=== PATIENT | male | born 2000 | race African-American/Black ===

== ENCOUNTER 2021-09-27 22:42 | Emergency (ER) | payer MEDICAID ==
[~2021-09-27] VITALS: Ht 185 cm; Wt 145.1 kg
[2021-09-27 22:50] VITALS: BP 112/84
--- NOTE | 2021-09-27 22:54 | ED Cough/URI ---
General Chief Complaint: COVID19 Suspect/Confirmed Stated Complaint: CHEST PAIN, COUGH, CONGESTION, NAUSEA, NUÑEZ Source: patient History of Present Illness Date Seen by Provider: Sep 27, 2021 Time Seen by Provider: 22:48 Initial Comments PT ARRIVES VIA POV FROM HOME SYMPTOMS BEGAN TODAY C/O COUGH C/O CHEST CONGESTION C/O HEADACHE C/O NAUSEA--NO VOMITING OR DIARRHEA C/O CHEST TIGHTNESS NO SHORTNESS OF BREATH NO FEVER NO BODY ACHES NO SORE THROAT NO LOSS OF TASTE /SMELL EATING AND DRINKING AND VOIDING NORMALLY HAS NOT TAKEN ANYTHING FOR SYMPTOMS PT HAS NOT HAD COVID-19 OR FLU VACCINES NO KNOWN SICK CONTACTS NO CHRONIC ILLNESSES NON SMOKER PCP: NONE--JUST MOVED HERE 1 MONTH AGO FROM [place]. Allergies and Home Medications Patient Home Medication List Home Medication List Reviewed: Yes Review of Systems Review of Systems Constitutional: no symptoms reported EENTM: nose congestion, throat pain Respiratory: see HPI, cough; No short of breath Cardiovascular: no symptoms reported Gastrointestinal: see HPI; No diarrhea; nausea; No vomiting Genitourinary: no symptoms reported Musculoskeletal: no symptoms reported Skin: no symptoms reported Psychiatric/Neurological: See HPI, Headache Hematologic/Lymphatic: No Symptoms Reported Immunological/Allergic: no symptoms reported Past Apnujdh-Satjyc-Xdqtnz Hx Patient Social History Tobacco Use?: No Smoking Status: Never a Smoker Smokeless Tobacco Frequency: Never a User Use of E-Cig and/or Vaping dev: No Use of E-Cig and/or Vaping Coy: Never a User Substance use?: No Alcohol Use?: No Past Medical History Surgeries: No Respiratory: No Cardiac: No Neurological: No Genitourinary: No Gastrointestinal: No Musculoskeletal: No Endocrine: No HEENT: No Cancer: No Psychosocial: No Integumentary: No Blood Disorders: No Physical Exam Vital Signs - First Documented 09/27/21 09/27/21 22:50 23:53 Temp 36.9 Pulse 98 Resp 20 B/P (MAP) 112/84 (93) Pulse Ox 98 Capillary Refill : Height: '" Weight: lbs. oz. kg; BMI Method: General Appearance: WD/WN, no apparent distress, obese, other (DOES NOT APPEAR ILL OR TO BE IN ANY DISCOMFORT OR DISTRESS. NO COUGH NOTED DURING EXAM) HEENT: PERRL/EOMI, normal ENT inspection, TMs normal, pharynx normal, other Neck: non-tender, full range of motion, supple, normal inspection Respiratory: chest non-tender, normal breath sounds, no respiratory distress, no accessory muscle use Cardiovascular: regular rate, rhythm, no murmur Gastrointestinal: non tender, soft Extremities: normal inspection Neurologic/Psychiatric: no motor/sensory deficits, alert, normal mood/affect, oriented x 3 Skin: normal color (PT IS BLACK), warm/dry Progress/Results/Core Measures Suspected Sepsis SIRS Temperature: Pulse: Respiratory Rate: Blood Pressure / Mean: Results/Orders Lab Results Laboratory Tests Test 09/27/21 23:00 09/27/21 23:05 09/27/21 23:15 Range/Units Influenza Type A Antigen NEGATIVE NEGATIVE Influenza Type B Antigen NEGATIVE NEGATIVE SARS-CoV-2 RNA (RT-PCR) Not Detected Negative My Orders Orders - CARMENCITA PILLAI DO Covid 19 Inhouse Test (09/27/21 22:48) Isolation Central Supply Req (09/27/21 22:48) Influenza A & B Antigens (09/27/21 23:05) Coronavirus Sars-Cov-2 So 2019 (09/27/21 23:00) Vital Signs/I&O 09/27/21 09/27/21 22:50 23:53 Temp 36.9 Pulse 98 Resp 20 B/P (MAP) 112/84 (93) Pulse Ox 98 Capillary Refill : Progress Note : Progress Note PLACED IN ISOLATION ROOM PPE WORN AT ALL TIMES COVID-19 AND FLU TESTING DONE NO COUGH NO DYSPNEA NO HYPOXIA NO FEVER DURING ER STAY Departure Impression Primary Impression: Person under investigation for COVID-19 Additional Impression: COVID LIKE ILLNESS Disposition: 01 HOME, SELF-CARE Condition: Stable Departure-Patient Inst. Decision time for Depature: 00:20 Patient Instructions: Preventing the Spread of an Infectious Disease, COVID-19 Tests Add. Discharge Instructions: TYLENOL AND MOTRIN NEEDED FOR PAIN OR FEVER OVER THE COUNTER MEDICATIONS NEEDED FOR COUGH AND CONGESTION LOTS OF CLEAR LIQUIDS QUARANTINE YOURSELF AND ALL HOUSEHOLD AND CLOSE CONTACTS FOR THE NEXT 5 DAYS, AND AFTER 5 DAYS, IF YOU ARE HAVING IMPROVED SYMPTOMS AND NO FEVER FOR OVER 24 HOURS WITHOUT MEDICATION, YOU MAY THEN WEAR A MASK AT ALL TIMES FOR AN ADDITIONAL 5 DAYS WHENEVER YOU LEAVE THE HOUSE YOU NEED TO BE RETESTED FOR COVID AND FLU IN 2-3 DAYS All discharge instructions reviewed with patient and/or family. Voiced understanding. Work/School Note: Work Release Form Date Seen in the Emergency Department: Sep 27, 2021 Return to Work: Oct 04, 2021 Restrictions: Return-No Fever (24hrs) CARMENCITA PILLAI DO Sep 27, 2021 22:53
== END 2021-09-28 00:54 | disposition home or self-care (01) ==
LOC: ER 22:45
DX: Z20.822 Contact with and (suspected) exposure to COVID-19 (principal); E66.9 Obesity, unspecified
CPT/HCPCS: 87635; 87636; 87804; 99285

== ENCOUNTER 2021-10-03 22:44 | Emergency (ER) | payer MEDICAID ==
[~2021-10-03] VITALS: Ht 183 cm; Wt 145.0 kg
[2021-10-03] MEDS ORDERED: ASPIRIN 81 MG CHEW (CHILDREN'S ASA) PO ONE (23:30)
--- NOTE | 2021-10-03 23:35 | ED Chest Pain ---
General Chief Complaint: Chest Pain Stated Complaint: CHEST PAIN/HOT FLASHES/BODYACHES FLU + Source: patient Exam Limitations: no limitations History of Present Illness Date Seen by Provider: Oct 03, 2021 Time Seen by Provider: 23:16 Initial Comments Patient to the ER by private conveyance with chief complaint he is having some chest pain for the past 1-1/2 weeks. 3 or 4 days ago he started having body aches fevers chills malaise and was diagnosed with influenza A. He recently moved here a month ago from [place]. He had an ongoing work-up with a grid caster at [place] for enlarged heart. He has a family history of early onset coronary disease in his father which killed him as well as sudden cardiac in his family. His mother has hypertension. He does not know if either of them have diabetes. He has medications he is supposed to be taking but he stopped taking them over a month ago. He does not have a primary care doctor or grid caster presently. His chest pain is all the way across his chest. He had echocardiograms but no cardiac catheterizations. No nausea vomiting diarrhea. He states he is having some swelling and tingling in his right lower extremity. No history of blood clots in himself or his family that he knows of. Allergies and Home Medications Allergies Coded Allergies: No Known Drug Allergies (Unverified , 10/03/21) Patient Home Medication List Home Medication List Reviewed: Yes Ondansetron (Ondansetron Odt) 4 Mg Tab.rapdis, 4 MG PO Q6H PRN for NAUSEA/V OMITING Prescribed by: NORI CARNES on 10/04/21 0236 Review of Systems Review of Systems Constitutional: No chills, No diaphoresis EENTM: No Blurred Vision, No Double Vision Respiratory: Denies Cough, Denies Shortness of Air Cardiovascular: See HPI, Chest Pain; Denies Edema, Denies Lightheadedness; Syncope Gastrointestinal: See HPI; Denies Abdominal Pain, Denies Constipated, Denies Diarrhea, Denies Nausea Genitourinary: Denies Burning, Denies Discharge Musculoskeletal: No back pain, No joint pain Skin: No change in color, No pruritus, No rash Psychiatric/Neurological: Denies Anxiety, Denies Depressed All Other Systems Reviewed Negative Unless Noted: Yes Past Sjnjlrh-Avxjbn-Vozqtf Hx Patient Social History Tobacco Use?: No Use of E-Cig and/or Vaping dev: No Substance use?: No Past Medical History Surgeries: No Respiratory: No Cardiac: No Neurological: No Genitourinary: No Gastrointestinal: No Musculoskeletal: No Endocrine: No HEENT: No Cancer: No Psychosocial: No Integumentary: No Blood Disorders: No Physical Exam Vital Signs Vital Signs - First Documented 10/03/21 23:20 Temp 37.0 Pulse 86 Resp 20 B/P (MAP) 160/103 (122) Pulse Ox 98 O2 Delivery Room Air Capillary Refill : Height, Weight, BMI Height: '" Weight: lbs. oz. kg; 42.00 BMI Method: General Appearance: WD/WN, Anxious, Obese HEENT: PERRL/EOMI, Pharynx Normal, Moist Mucous Membranes Neck: Full Range of Motion, Normal Inspection, Non Tender Respiratory: Lungs Clear, Normal Breath Sounds, No Accessory Muscle Use, No Respiratory Distress Cardiovascular: Regular Rate, Rhythm, No Edema, No JVD, No Murmur, Normal Peripheral Pulses Gastrointestinal: Normal Bowel Sounds, No Organomegaly, Non Tender, Soft Extremity: Normal Capillary Refill, Normal Inspection, Non Tender, No Pedal Edema Neurologic/Psychiatric: Alert, Oriented x3, No Motor/Sensory Deficits, Normal Mood/Affect Skin: Normal Color, Warm/Dry Progress/Results/Core Measures Results/Orders Lab Results Laboratory Tests Test 10/03/21 23:28 10/04/21 01:35 Range/Units White Blood Count 9.3 4.3-11.0 10^3/uL Red Blood Count 5.14 4.30-5.52 10^6/uL Hemoglobin 14.7 13.3-17.7 g/dL Hematocrit 42 40-54 % Mean Corpuscular Volume 81 80-99 fL Mean Corpuscular Hemoglobin 29 25-34 pg Mean Corpuscular Hemoglobin Concent 35 32-36 g/dL Red Cell Distribution Width 11.9 10.0-14.5 % Platelet Count 290 130-400 10^3/uL Mean Platelet Volume 9.2 9.0-12.2 fL Immature Granulocyte % (Auto) 0 % Neutrophils (%) (Auto) 64 42-75 % Lymphocytes (%) (Auto) 26 12-44 % Monocytes (%) (Auto) 8 0-12 % Eosinophils (%) (Auto) 1 0-10 % Basophils (%) (Auto) 0 0-10 % Neutrophils # (Auto) 6.0 1.8-7.8 10^3/uL Lymphocytes # (Auto) 2.5 1.0-4.0 10^3/uL Monocytes # (Auto) 0.8 0.0-1.0 10^3/uL Eosinophils # (Auto) 0.1 0.0-0.3 10^3/uL Basophils # (Auto) 0.0 0.0-0.1 10^3/uL Immature Granulocyte # (Auto) 0.0 0.0-0.1 10^3/uL Prothrombin Time 14.4 12.2-14.7 SEC INR Comment 1.1 0.8-1.4 Activated Partial Thromboplast Time 34 24-35 SEC D-Dimer 0.49 0.00-0.49 UG/ML Sodium Level 137 135-145 MMOL/L Potassium Level 3.9 3.6-5.0 MMOL/L Chloride Level 99 98-107 MMOL/L Carbon Dioxide Level 26 21-32 MMOL/L Anion Gap 12 5-14 MMOL/L Blood Urea Nitrogen 7 7-18 MG/DL Creatinine 1.10 0.60-1.30 MG/DL Estimat Glomerular Filtration Rate 99 BUN/Creatinine Ratio 6 Glucose Level 115 H 70-105 MG/DL Calcium Level 9.1 8.5-10.1 MG/DL Corrected Calcium 9.1 8.5-10.1 MG/DL Magnesium Level 2.3 1.6-2.4 MG/DL Total Bilirubin 0.6 0.1-1.0 MG/DL Aspartate Amino Transf (AST/SGOT) 23 5-34 U/L Alanine Aminotransferase (ALT/SGPT) 23 0-55 U/L Alkaline Phosphatase 58 40-136 U/L Myoglobin 59.6 10.0-92.0 NG/ML Troponin I < 0.028 < 0.028 <0.028 NG/ML B-Type Natriuretic Peptide < 10.0 <100.0 PG/ML Total Protein 8.6 H 6.4-8.2 GM/DL Albumin 4.0 3.2-4.5 GM/DL Lipase 34 8-78 U/L Triglycerides Level 98 <150 MG/DL Cholesterol Level 152 < 200 MG/DL LDL Cholesterol Direct 117 1-129 MG/DL VLDL Cholesterol 20 5-40 MG/DL HDL Cholesterol 26 L 40-60 MG/DL My Orders Orders - NORI CARNES Cbc With Automated Diff (10/03/21) Magnesium (10/03/21) Ekg Tracing (10/03/21) Comprehensive Metabolic Panel (10/03/21) Myoglobin Serum (10/03/21) Protime With Inr (10/03/21) Partial Thromboplastin Time (10/03/21) O2 (10/03/21) Monitor-Rhythm Ecg Trace Only (10/03/21) Lipid Panel (10/04/21 06:00) Ed Iv/Invasive Line Start (10/03/21) Lipase (10/03/21) Bnp [place] (10/03/21:) Fibrin Degradation Products (10/03/21) Troponin I [place] (10/03/21) Nitroglycerin 0.4 Mg Btl 25's (Nitrostat (10/03/21 23:30) Aspirin Chewable Tablet (Baby Aspirin Ch (10/03/21 23:30) Chest 1 View, Ap/Pa Only (10/04/21 00:07) Troponin I [place] (10/04/21 01:30) Ketorolac Injection (Toradol Injection) (10/04/21 01:15) Medications Given in ED Vital Signs/I&O 10/03/21 10/04/21 23:20 02:54 Temp 37.0 37.0 Pulse 86 73 Resp 20 16 B/P (MAP) 160/103 (122) 155/102 Pulse Ox 98 98 O2 Delivery Room Air Room Air Progress Progress Note : Time: 23:33 Progress Note Unclear if the patient has some kind of cardiac hypertrophy. We will get him referred on to cardiology. We'll do some troponins tonight looking for myocarditis as well as a D-dimer to rule out PE. Chest x-ray. Initial ECG Impression Date: Oct 03, 2021 Initial ECG Impression Time: 23:35 Initial ECG Rate: 72 Initial ECG Rhythm: Normal Sinus Initial ECG Intervals: Normal Initial ECG Impression: Normal, Nonspecific Changes Initial ECG Comparisson: No Previous ECG Available Comment Half a block of elevation in lead V1, V2 with half block depression in aVL. No clinically relevant ST changes. Sinus rhythm. Diagnostic Imaging Diagonstic Imaging: Xray Plain Films/CT/US/NM/MRI: chest Comments [facility] [place], [place] NAME: [facility] REC#: [id number] PT STATUS: DEP ER : 2000 PHYSICIAN: NORI CARNES MD ADMIT DATE: 10/03/21/ER Signed Date of Exam:10/04/21 CHEST 1 VIEW, AP/PA ONLY EXAMINATION: Chest 1 view HISTORY: cp soa flu COMPARISON: None available. FINDINGS: Heart size and pulmonary vasculature are normal. Low lung volumes with mild bibasilar interstitial opacities. No pleural effusion or pneumothorax. The osseous structures are intact. IMPRESSION: 1. Low lung volumes with mild bibasilar atelectasis, edema, or atypical infection. Dictated by: Dictated on workstation # [id number] Dict: 10/04/21558 Trans: 10/04/21904 NGOC [id number] Interpreted by: WARREN BUCHANAN DO Electronically signed by: WARREN BUCHANAN DO 10/04/21904 Reviewed: Reviewed by Me Departure Impression Primary Impression: Influenza A Additional Impression: Pleurisy Disposition: 01 HOME, SELF-CARE Condition: Stable Departure-Patient Inst. Decision time for Depature: 02:35 Referrals: MAYITO COLEMAN MD FACP FAC CCDS NO,LOCAL PHYSICIAN (PCP) Primary Care Physician Patient Instructions: LOCAL PHYSICIAN LIST, Pleuritic Chest Pain (DC) Add. Discharge Instructions: Your chest pain seems to be related to the lining of your chest wall and is likely due to the influenza. Zofran 1 tablet every 6 hours necessary for nausea or vomiting. Tylenol and/or ibuprofen as necessary for pain and/or fever. Call Dr. Coleman, grid caster and request a follow-up appointment to continue the work-up of your heart. All discharge instructions reviewed with patient and/or family. Voiced understanding. Scripts Ondansetron (Ondansetron Odt) 4 Mg Tab.rapdis 4 MG PO Q6H PRN for NAUSEA/VOMITING, #10 TAB 0 Refills Prov: NORI CARNES 10/04/21 Copy Copies To 1: MAYITO COELMAN MD FACP FACC CCDS NORI CARNES Oct 03, 2021 23:35
[2021-10-03 23:36] LABS: BASOPHILS % (AUTO) 0 % (0-10); EOSINOPHILS # (AUTO) 0.1 10^3/uL (0.0-0.3); EOSINOPHILS % (AUTO) 1 % (0-10); HEMATOCRIT 42 % (40-54); HEMOGLOBIN 14.7 g/dL (13.3-17.7); LYMPHOCYTES # (AUTO) 2.5 10^3/uL (1.0-4.0); LYMPHOCYTES % (AUTO) 26 % (12-44); MEAN CORPUSCULAR HEMOGLOBIN 29 pg (25-34); MEAN CORPUSCULAR HGB CONC 35 g/dL (32-36); MEAN CORPUSCULAR VOLUME 81 fL (80-99); MEAN PLATELET VOLUME 9.2 fL (9.0-12.2); MONOCYTES # (AUTO) 0.8 10^3/uL (0.0-1.0); MONOCYTES % (AUTO) 8 % (0-12); NEUTROPHILS % (AUTO) 64 % (42-75); PLATELET COUNT 290 10^3/uL (130-400); WHITE BLOOD COUNT 9.3 10^3/uL (4.3-11.0)
[2021-10-03] MEDS: NITROGLYCERIN 0.4 MG SL TABS BTL 25'S SL PRN (23:45)
[2021-10-03 23:49] LABS: INR 1.1 (0.8-1.4); POTASSIUM 3.9 MMOL/L (3.6-5.0); PROTHROMBIN TIME PATIENT 14.4 SEC (12.2-14.7)
[2021-10-03 23:50] LABS: CALCIUM 9.1 MG/DL (8.5-10.1)
[2021-10-03 23:51] LABS: TOTAL PROTEIN 8.6 GM/DL (6.4-8.2)
[2021-10-03 23:53] LABS: BILIRUBIN,TOTAL 0.6 MG/DL (0.1-1.0)
[2021-10-03 23:55] LABS: CREATININE SERUM 1.1 MG/DL (0.60-1.30)
[2021-10-03 23:58] LABS: MAGNESIUM 2.3 MG/DL (1.6-2.4)
[2021-10-04] MEDS: NITROGLYCERIN 0.4 MG SL TABS BTL 25'S SL PRN
[2021-10-04] MEDS ORDERED: KETOROLAC 30 MG/ML VIAL IVP ONE (01:15)
[2021-10-04 02:03] LABS: TRIGLYCERIDES 98 MG/DL (<150); VLDL CHOLESTEROL 20 MG/DL (5-40)
[2021-10-04 02:08] LABS: CHOLESTEROL 152 MG/DL (< 200); HDL CHOLESTEROL 26 MG/DL (40-60)
[2021-10-04] MEDS ORDERED: ONDA4TAB11 PO (02:36)
[2021-10-04 02:54] VITALS: BP 155/102
--- NOTE | 2021-10-04 06:01 | Diagnostic Imaging Report ---
EXAMINATION: Chest 1 view HISTORY: cp soa flu COMPARISON: None available. FINDINGS: Heart size and pulmonary vasculature are normal. Low lung volumes with mild bibasilar interstitial opacities. No pleural effusion or pneumothorax. The osseous structures are intact. IMPRESSION: 1. Low lung volumes with mild bibasilar atelectasis, edema, or atypical infection. Dictated by: Dictated on workstation # [id number]
== END 2021-10-04 03:04 | disposition home or self-care (01) ==
LOC: EDUNIT# 22:44 → ER 22:48
DX: J10.1 Influenza due to other identified influenza virus with other respiratory manifestations (principal); R09.1 Pleurisy; E66.9 Obesity, unspecified; Z68.41 Body mass index [BMI] 40.0-44.9, adult
CPT/HCPCS: 36415; 71045; 80053; 80061; 83690; 83735; 83874; 83880; 84484; 85025; 85379; 85610; 85730; 93005; 93041